=== PATIENT | male | born 1955 | race Caucasian/White ===

== ENCOUNTER → 2016-07-02 | Outpatient (CLI) | payer BC ==
--- NOTE | 2016-07-02 13:55 | DIAGNOSTIC IMAGING REPORT ---
ULTRASOUND LEFT LOWER EXTREMITY VENOUS CLINICAL HISTORY: Left leg pain. COMPARISON STUDY: No priors. TECHNIQUE: Real-time, grayscale, and color Doppler sonography of the deep veins of the left lower extremity was performed from the inguinal crease to the calf. Compression and augmentation were utilized. FINDINGS: Occlusive deep venous thrombus is identified in the distal left femoral vein. This extends in the popliteal vein and into the calf within the posterior tibial vein. Nonocclusive thrombus is identified in the calf within the peroneal vein. The common femoral vein as well as the proximal and mid portions of the superficial femoral vein are patent and normally compressible. The greater saphenous vein and the profunda femoris vein at the junction with the common femoral vein are clear. IMPRESSION: There is occlusive deep venous thrombosis seen within the distal left superficial femoral vein extending into the popliteal vein and the calf as detailed above. Electronically signed by: Chan Crouch M.D. 07/02/2016 1:54 PM Dictated Date/Time: 07/02/2016 1:52 PM
== END | disposition home or self-care (01) ==
LOC: C.ULTR 13:26
PROVIDERS: ATTEND Family Medicine
DX: I82.412 Acute embolism and thrombosis of left femoral vein (principal); I82.432 Acute embolism and thrombosis of left popliteal vein; I82.402 Acute embolism and thrombosis of unspecified deep veins of left lower extremity

== ENCOUNTER → 2016-07-12 | Outpatient (CLI) | payer BC ==
--- NOTE | 2016-07-12 12:15 | DIAGNOSTIC IMAGING REPORT ---
DUPLEX RENAL ARTERY ULTRASOUND CLINICAL HISTORY: Hypertension. COMPARISON STUDY: None. FINDINGS: The left kidney measures 12.3 cm and the right kidney measures 12.9 cm. The peak systolic velocity within the mid right renal artery was 152 cm/s. Mild bilateral cortical renal thinning. The systolic velocity within the proximal left renal artery was 168 cm/s. Bilateral renal veins are patent. Resistive indices of the bilateral renal arcuate arteries are within normal limits. There is a 1.1 cm cyst within the left kidney. There is a 6 mm stone within the lower pole of the right kidney. Multiple left renal calculi with the largest measuring 1.3 cm. No hydronephrosis. IMPRESSION: 1. Top normal velocities within the bilateral renal arteries without definite hemodynamically significant stenosis. 2. Bilateral nephrolithiasis. No hydronephrosis. Electronically signed by: Brooks Martin M.D. 07/12/2016 12:13 PM Dictated Date/Time: 07/12/2016 11:52 AM
== END | disposition home or self-care (01) ==
LOC: C.ULTR 10:46
PROVIDERS: ATTEND Family Medicine
DX: I12.9 Hypertensive chronic kidney disease with stage 1 through stage 4 chronic kidney disease, or unspecified chronic kidney disease (principal); N18.3 Chronic kidney disease, stage 3 (moderate); E11.39 Type 2 diabetes mellitus with other diabetic ophthalmic complication; R60.9 Edema, unspecified; E11.22 Type 2 diabetes mellitus with diabetic chronic kidney disease

== ENCOUNTER → 2017-06-15 | Outpatient (CLI) | payer BC ==
[2017-06-15 15:48] LABS: ALBUMIN 3.9 gm/dl (3.4-5.0); BLOOD UREA NITROGEN 28 mg/dl (7-18); CALCIUM 9.4 mg/dl (8.5-10.1); CARBON DIOXIDE 29 mmol/L (21-32); CREATININE 1.39 mg/dl (0.60-1.40); GLUCOSE 86 mg/dl (70-99); POTASSIUM 3.4 mmol/L (3.5-5.1); SODIUM 141 mmol/L (136-145)
[2017-06-15 15:59] LABS: PHOSPHORUS 3.9 mg/dl (2.5-4.9)
== END | disposition home or self-care (01) ==
LOC: C.LAB1850 14:24
PROVIDERS: ATTEND Internal Medicine Nephrology
DX: I10 Essential (primary) hypertension (principal)

== ENCOUNTER → 2017-07-05 | Outpatient (CLI) | payer BC ==
[2017-07-05 17:02] LABS: ALBUMIN 3.9 gm/dl (3.4-5.0); BLOOD UREA NITROGEN 32 mg/dl (7-18); CALCIUM 9.1 mg/dl (8.5-10.1); CARBON DIOXIDE 30 mmol/L (21-32); CREATININE 1.57 mg/dl (0.60-1.40); GLUCOSE 108 mg/dl (70-99); PHOSPHORUS 3.7 mg/dl (2.5-4.9); POTASSIUM 3.1 mmol/L (3.5-5.1); SODIUM 142 mmol/L (136-145)
== END | disposition home or self-care (01) ==
LOC: C.LAB1850 15:08
PROVIDERS: ATTEND Internal Medicine Nephrology
DX: R80.9 Proteinuria, unspecified (principal); I10 Essential (primary) hypertension

== ENCOUNTER → 2017-07-07 | Outpatient (CLI) | payer BC ==
--- NOTE | 2017-07-07 08:49 | DIAGNOSTIC IMAGING REPORT ---
R SHOULDER MIN 2 VIEWS CLINICAL HISTORY: RIGHT SHOULDER PAIN pain COMPARISON: None. DISCUSSION: Mild calcific supraspinatus tendinitis. Mild degenerative change acromioclavicular joint. Glenohumeral joint is unremarkable. No evidence for fracture or dislocation. There is no evidence for soft tissue swelling. IMPRESSION: 1. Mild calcific supraspinatus tendinitis. 2. Mild degenerative change right acromioclavicular joint. The above report was generated using voice recognition software. It may contain grammatical, syntax or spelling errors. Electronically signed by: Arnulfo Trevizo M.D. 07/07/2017 8:48 AM Dictated Date/Time: 07/07/2017 8:46 AM
== END | disposition home or self-care (01) ==
LOC: C.RDSM 15:20
PROVIDERS: ATTEND Family Medicine
DX: M25.511 Pain in right shoulder (principal)

== ENCOUNTER → 2017-07-18 | Outpatient (CLI) | payer BC ==
[2017-07-18 12:42] LABS: ALBUMIN 3.6 gm/dl (3.4-5.0); BLOOD UREA NITROGEN 26 mg/dl (7-18); CALCIUM 8.9 mg/dl (8.5-10.1); CARBON DIOXIDE 27 mmol/L (21-32); CREATININE 1.28 mg/dl (0.60-1.40); GLUCOSE 95 mg/dl (70-99); PHOSPHORUS 3.2 mg/dl (2.5-4.9); SODIUM 142 mmol/L (136-145)
== END | disposition home or self-care (01) ==
LOC: C.LAB1850 09:37
PROVIDERS: ATTEND Internal Medicine Nephrology
DX: R80.9 Proteinuria, unspecified (principal); E87.6 Hypokalemia